=== PATIENT | male | born 1990 | race Caucasian/White ===

== ENCOUNTER 2019-07-30 18:57 | Emergency (ER) | payer SELFPAY ==
[~2019-07-30] VITALS: Ht 170.2 cm; Wt 59.9 kg
[2019-07-30 22:02] VITALS: BP 119/70
[2019-07-30] MEDS ORDERED: LIDOCAINE 1% HCL (LOCAL ANESTH.) INJ 20ML MDV IJ ONE (22:15)
[2019-07-30] MEDS ORDERED: cefTRIAXone SOD 1,000 MG VL IM ONE (22:15)
[2019-07-30] MEDS ORDERED: ACETAMINOPHEN/CODEINE#3 (300/30mg) TAB PO ONE (22:30)
[2019-07-30] MEDS ORDERED: TETANUS-DIPTH-ACEL PERTUSSIS 0.5ML SYRG IM ONE (23:15)
== END 2019-07-30 23:37 | disposition home or self-care (01) ==
LOC: ER 19:01
DX: S61.216A Laceration without foreign body of right little finger without damage to nail, initial encounter (principal); F17.210 Nicotine dependence, cigarettes, uncomplicated; F12.10 Cannabis abuse, uncomplicated; W23.0XXA Caught, crushed, jammed, or pinched between moving objects, initial encounter; Y93.89 Activity, other specified; Y99.8 Other external cause status; Y92.89 Other specified places as the place of occurrence of the external cause
CPT/HCPCS: 12002; 73110; 73130; 90471; 90715; 96372; 99283; J0696; J2001

== ENCOUNTER 2021-10-30 08:50 | Emergency (ER) | payer MEDICAID ==
[~2021-10-30] VITALS: Ht 172.7 cm; Wt 59.0 kg
[2021-10-30] MEDS ORDERED: KETOROLAC TROMETH 30 MG/ML 1ML VIAL IV ONE (09:45)
[2021-10-30] MEDS ORDERED: PROMETHAZINE HCL 25 MG/ML 1ML IV ONE (09:45)
[2021-10-30 09:46] VITALS: BP 127/65
[2021-10-30 09:54] LABS: Basophils # (auto) 0.1 10 ^3/uL (0-0.2); Basophils % (auto) 0.4 % (0.0-2.0); Eosinophils # (auto) 0 10 ^3/uL (0-0.8); Eosinophils % (auto) 0.3 % (0.0-7.0); Hematocrit 43.4 % (41.0-53.0); Hemoglobin 14.7 g/dL (13.5-17.5); Lymphocytes # (auto) 1.8 10 ^3/uL (0.4-5.4); Lymphocytes % (auto) 11.5 % (10.0-50.0); Mean Corpuscular Hemoglobin 32.6 pg (28.0-32.0); Mean Corpuscular Hgb Conc. 33.8 g/dL (32.0-36.0); Mean Corpuscular Volume 96.6 fL (80.0-100.0); Neutrophils % (auto) 81.8 % (37.0-80.0); Red Cell Distribution Width 13.5 % (11.8-14.3); White Blood Cell 15.9 10^3/uL (4.4-10.8)
[2021-10-30] MEDS ORDERED: SODIUM CHLORIDE 0.9% 1,000 ML IV ONE ×2 (10:00)
[2021-10-30 10:08] LABS: Albumin 4.2 g/dL (3.4-5.0); Calcium 8.6 mg/dL (8.5-10.1)
[2021-10-30 10:12] LABS: BUN/Creatinine Ratio 9.3; Bilirubin, Total 0.3 mg/dL (0.2-1.0); Total Protein 7.5 g/dL (6.4-8.2)
== END 2021-10-30 09:57 | disposition left against medical advice (07) ==
LOC: ER 08:50 → EDBD 08:50 → ER 09:57
DX: R55 Syncope and collapse (principal); F17.210 Nicotine dependence, cigarettes, uncomplicated; F12.10 Cannabis abuse, uncomplicated; Z53.29 Procedure and treatment not carried out because of patient's decision for other reasons
CPT/HCPCS: 36415; 80053; 85025

== ENCOUNTER 2025-07-08 12:01 | Emergency (ER) | payer MEDICAID ==
[~2025-07-08] VITALS: Ht 175.3 cm; Wt 68.0 kg
--- NOTE | 2025-07-08 12:14 | ED.PDOC ---
HPI (NEURO) HPI Comments HPI: This is a 34 year old male MEJIAA presenting to the ED with chief complaint of seizure. 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 EMS relays that the patient has no recollection of the seizure or the events leading up to him going to work. Patient states that he last had a seizure 3 years ago and has not been taking any Keppra since then. Patient denies any headache, oral trauma, incontinence, chest pain, or SOB. Initial Vitals BP: 102/55 HR: 71 RR: 15 O2: 95% Temp: 98.9F Past Medical History: Seizures Past Surgical History: Denies Social History: Denies ETOH and smoking, +Marijuana use Medications: Denies Allergies: NKDA HPI: Poor Historian. REVIEW OF SYSTEMS: CONSTITUTIONAL: Denies acute: fever, diaphoresis, chills, HEAD: Denies acute: headache, photophobia Eyes: Denies acute: Double vision, vision loss, eye pain, eye discharge. EARS: Denies acute: tinnitus, hearing loss, ear discharge, ear pain, THROAT: Denies acute: sore throat, swelling, difficulty swallowing , pain with swallowin g, change in voice. NECK: Denies acute: neck pain, neck swelling, stiff neck. HEART: Denies acute : chest pain, palpitations, LUNGS: Denies acute: SOB, wheezing, cough, hemoptysis ABDOMEN: Denies acute: abdominal pain, Nausea, Vomiting, diarrhea, melena , hematemesis, hematochezia SKIN: Denies acute: rash, redness, lesions, itchiness. EXTREMITIES: Denies acute: calf pain, numbness, tingling, weakness, denies pain in extremity. Denies acute: Low back pain. Neuro: Denies acute: focal neurological deficit, motor or sensory focal neurological deficit, tremors, dizziness, change in mental status, loss of bowel or bladder function, cauda equina like symptoms. : Denies acute: dysuria, hematuria, flank pain, increase in urinary frequency. PSYCH: Denies acute: hallucination, suicidal ideation, homicidal ideation. PHYSICAL EXAM: General: ---mild-----acute distress, awake and alert. Head: normocephalic, atraumatic. Neck: supple, trachea is midline, no swelling. Cervical spine: Palpation of the posterior midline of the cervical spine reveals no focal swelling, erythema, focal tenderness to palpation. Patient has normal range of motion. Throat: Normal phonation. No evidence of oral trauma. No erythema exudates or swelling. Eyes:, no erythema, no purulent discharge, no proptosis, no icterus. Heart: regular rate, regular rhythm, no significant murmur appreciated. Lungs: no apparent respiratory distress, Able to speak in full sentences. No wheezing, no rhonchi, no crackles. No stridors Clear to auscultation bilaterally. Abdomen: non tender to palpation, non distended, soft, no guarding, no rebound, + bowel sounds. Neuro: Awake, Alert, oriented to name, self, situation, follows commands GCS=15. Speech is normal. Skin: no petechia, no purpura, no cyanosis, non-pale, not jaundice. Lower extremities: --no - Pitting edema no deformity, no focal swelling, no calf TTP. Makes eye contact. moves all four extremities. Face: no apparent facial droop. PERRLA, EOM-I CN 2-12 are grossly intact, No nystagmus. No nuchal rigidity, Kernig's sign, Brudzinski's sign, no meningeal signs. ED COURSE: DISCLAIMER: This medical document was created using an electronic medical record system with voice recognition software and computerized dictation system. Although this document has been carefully reviewed, there might still be some phonetic and typographical errors. Occasional wrong-word or "sound-alike" substitutions may have occurred due to the inherent limitations of voice recognition software. These areas are purely typographical due to imperfections of the software programs and do not reflect any compromise in the patient's medical care. Please read the chart carefully and recognize, using context, where these substitutions have occurred. Time Seen by MD: 12:11 Primary Care Provider: UNKNOWN Reviewed Notes: Medications, Allergies Information Source: Patient, Emergency Med Personnel Mode of Arrival: EMS EKG EKG : Pulse Rate (adult): 71 Cardiac Rhythm: NSR Was a procedure done? Was a procedure done?: No X-Ray, Labs, Meds, VS Vital Signs Date Time Temp Pulse Resp B/P (MAP) Pulse Ox O2 Delivery O2 Flow Rate FiO2 07/08/25 12:45 66 15 95 Room Air* 0 21 07/08/25 12:45 98.9 66 15 102/55 (71) 95 98.9 07/08/25 12:14 71 07/08/25 12:10 71 07/08/25 12:01 98.1 90 14 120/78 100 98.1 Lab Test 07/08/25 14:23 07/08/25 13:15 Range/Units Troponin I High Sensitivity < 3 L < 3 L </=54 ng/L White Blood Count 10.1 4.4-10.8 10^3/uL Red Blood Count 3.96 L 4.5-5.90 10^6/uL Hemoglobin 13.0 L 13.5-17.5 g/dL Hematocrit 37.7 L 41.0-53.0 % Mean Corpuscular Volume 95.2 80.0-100.0 fL Mean Corpuscular Hemoglobin 32.8 H 28.0-32.0 pg Mean Corpuscular Hemoglobin Concent 34.5 32.0-36.0 g/dL Red Cell Distribution Width 13.7 11.8-14.3 % Platelet Count 236 140-450 10^3/uL Mean Platelet Volume 8.6 6.9-10.8 fL Neutrophils (%) (Auto) 73.5 37.0-80.0 % Lymphocytes (%) (Auto) 18.4 10.0-50.0 % Monocytes (%) (Auto) 7.0 0.0-12.0 % Eosinophils (%) (Auto) 0.5 0.0-7.0 % Basophils (%) (Auto) 0.6 0.0-2.0 % Neutrophils # (Auto) 7.4 1.6-8.6 10 ^3/uL Lymphocytes # (Auto) 1.9 0.4-5.4 10 ^3/uL Monocytes # (Auto) 0.7 0-1.3 10 ^3/uL Eosinophils # (Auto) 0.1 0-0.8 10 ^3/uL Basophils # (Auto) 0.1 0-0.2 10 ^3/uL Nucleated Red Blood Cells 0.0 % Sodium Level 145 136-145 mmol/L Potassium Level 4.1 3.5-5.1 mmol/L Chloride Level 110 H 98-107 mmol/L Carbon Dioxide Level 29 20-31 mmol/L Anion Gap 6 5-15 Blood Urea Nitrogen 15 9-23 mg/dL Creatinine 0.96 0.700-1.30 mg/dL Glomerular Filtration Rate Calc 108 >90 mL/min BUN/Creatinine Ratio 15.6 10.0-20.0 Serum Glucose 81 74-106 mg/dL Lactic Acid Level 1.1 0.4-2.0 mmol/L Calcium Level 9.2 8.7-10.4 mg/dL Magnesium Level 2.2 1.6-2.6 mg/dL Total Bilirubin 0.2 0.2-1.0 mg/dL Aspartate Amino Transferase (AST) 14 13-40 U/L Alanine Aminotransferase (ALT) 11 7-40 U/L Alkaline Phosphatase 54 46-116 U/L Creatine Kinase 172 H 46-171 U/L Total Protein 6.2 5.7-8.2 g/dL Albumin 4.4 3.2-4.8 g/dL Current Medications Medications (Trade) Dose Ordered Sig/Tomy Route Start Time Stop Time Status Last Admin Sodium Chloride 1,000 ml @ 1,000 mls/hr Q1H ONCE IV 07/08/25 12:15 07/08/25 13:14 DC 07/08/25 13:32 Levetiracetam 100 ml @ 400 mls/hr ONCE ONCE IV 07/08/25 12:15 07/08/25 12:29 DC 07/08/25 13:32 Acetaminophen/ Hydrocodone Bitart (Mccoy 5/325MG Tab) 1 tab ONCE ONCE PO 07/08/25 13:45 07/08/25 13:46 DC 07/08/25 13:45 Time of 1ST Reevaluation: 13:10 Reevaluation 1ST: Unchanged Time of 2ND Reevaluation: 15:06 (The case was discussed with the [facility] admitting team to transfer the patient for further evaluation and treatment (HPI, physical exam, labs and diagnostic tests that were available at the time of disposition, ED course, treatment plan) on the phone. They recommended to discharge the patient home on Keppra 500 mg b.i.d.. Authorization #[id number] Dr. Holm. They will arrange for urgent outpatient neuro follow up. Patient is now back to his baseline. Patient states he has Keppra prescription at home but requested that we send him home with a prescription just in case he can not find it. [facility] records per my phone call they said that the patient was never prescribed Keppra on there and but used to be on Tegretol. Patient still insists that he is on Keppra instead.) Patient Education/Counseling: Diagnosis, Treatment Family Education/Counseling: No Family Present Departure 1 Departure Time of Disposition: 15:09 Impression: Primary Impression: Seizure disorder Additional Impression: Noncompliance with medications Disposition: 01 HOME / SELF CARE / HOMELESS Condition: Stable Additional Instructions: Additional instructions: You MUST follow-up with your primary care/family doctor in 1 to 2 days. If you are unable to see your primary care/family doctor, please return to our emergency room for re-assessment and re-evaluation in 1 to 2 days. Return to the emergency room here in our facility or to the nearest ER [facility] if your symptoms change or worsen. CONSULTATIONS: you MUST Follow-up for consultation as soon as possible with: ---neurology in 1-2 days. Please call for appointment. You MUST call the consultants office yourself to make an appointment. You may need to arrange that through your insurance and/or your primary/family doctor. If you are unable to see the informatics consultant in 1 to 2 days, you must return to our emergency room (or any other ER of your choice) for re-assessment and re- evaluation. Adequate fluid hydration. Please compliant with the medications. Do not operate any machinery since she has a seizure disorder asked in the mid nurse. Absolutely No driving. Below is a copy of your radiological report for follow up: e-Prescriptions Levetiracetam (KEPPRA TABLET) 500 Mg Tb 500 MG PO BID for 30 Days, #60 TAB Prov: KAITLYNN BATISTA DO 07/08/25 Discharged With: Self Critical Care Note Critical Care Time?: No I personally scribed for KAITLYNN BATISTA DO ([email or web address]) on 07/08/25 at 12:14. Electronically submitted by Tommy Logan ([email or web address]). I personally scribed for KAITLYNN BATISTA DO ([email or web address]) on 07/08/25 at 14:15. Electronically submitted by Tommy Logan ([email or web address]). KAITLYNN BATISTA DO Jul 08, 2025 12:14
[2025-07-08 12:45] VITALS: PULSE 66; RESP 15; TEMP 98.9; O2SAT 95
--- NOTE | 2025-07-08 13:11 | DVH ---
CHEST RADIOGRAPH Indication: SEIZURE Technique: Single frontal view of the chest was obtained COMPARISON: None FINDINGS: Lines and Tubes: None Lungs: Clear Pleura: No effusion. No pneumothorax. Cardiomediastinal contours: Unremarkable Bones: Unremarkable IMPRESSION: No acute disease.
--- NOTE | 2025-07-08 13:27 | DVH ---
EXAM: CT HEAD WITHOUT CONTRAST INDICATION: SEIZURE TECHNIQUE: CT of the head without intravenous contrast. Radiation Dose Information: CT Dose: CTDI volume is 53.99 mGy. Dose-length product is 863.9 mGy*cm The dose indicators for CT are the volume Computed Tomography (CT) Dose Index (CTDIvol) and the Dose Length Product (DLP), and are measured in units of mGy and mGy-cm, respectively. These indicators are not patient dose, but values generated from the CT scanner acquisition factors. The report includes radiation exposure data for exposures received during this examination. COMPARISON: None FINDINGS: There is no evidence of acute intracranial hemorrhage, extra-axial collection, mass effect, midline s hift, herniation or hydrocephalus. The ventricles, sulci and cisterns are age appropriate. The watson-white differentiation is intact. Patchy periventricular and subcortical white matter hypoattenuation is nonspecific but may be related to small vessel ischemic disease. The visualized paranasal sinuses and mastoid air cells are clear. The surrounding soft tissues and osseous structures are unremarkable. IMPRESSION: No acute intracranial abnormality.
[2025-07-08 13:30] LABS: Hematocrit 37.7 % (41.0-53.0); Hemoglobin 13.0 g/dL (13.5-17.5); Mean Corpuscular Hemoglobin 32.8 pg (28.0-32.0); Mean Corpuscular Volume 95.2 fL (80.0-100.0); Nucleated Red Blood Cells % 0.0 %
[2025-07-08] MEDS: SODIUM CHLORIDE 0.9% 1,000 ML IV ONE (13:32)
[2025-07-08] MEDS: levETIRAcetam 1000 mg/100ml 100 ML IV ONE (13:32)
[2025-07-08 13:41] LABS: Alanine Aminotransferase 11 U/L (7-40); Albumin 4.4 g/dL (3.2-4.8); Alkaline Phosphatase 54 U/L (46-116); Anion Gap 6 (5-15); BUN/Creatinine Ratio 15.6 (10.0-20.0); Blood Urea Nitrogen 15 mg/dL (9-23); Calcium 9.2 mg/dL (8.7-10.4); Carbon Dioxide 29 mmol/L (20-31); Glucose 81 mg/dL (74-106); Magnesium 2.2 mg/dL (1.6-2.6); Potassium 4.1 mmol/L (3.5-5.1); Sodium 145 mmol/L (136-145); Total Protein 6.2 g/dL (5.7-8.2)
[2025-07-08 13:45] LABS: Bilirubin, Total 0.2 mg/dL (0.2-1.0); Chloride 110 mmol/L (98-107); Creatine Kinase IFCC 172 U/L (46-171)
[2025-07-08] MEDS: HYDROcodone-ACET 5/325MG TAB PO ONE (13:45)
[2025-07-08] MEDS ORDERED: KEP500T PO (15:09)
[2025-07-08 15:25] VITALS: BP 104/71; PULSE 48; RESP 15; O2SAT 96
[2025-07-08 15:26] LABS: Urine Protein, UAD Negative (Negative)
== END 2025-07-08 15:29 | disposition home or self-care (01) ==
LOC: EDBD 12:01 → ER 12:01 → EDUNIT# 12:01 → ER 15:29
DX: G40.909 Epilepsy, unspecified, not intractable, without status epilepticus (principal); Z91.148 Patient's other noncompliance with medication regimen for other reason
CPT/HCPCS: 36415; 70450; 71045; 80053; 81001; 82550; 83605; 83735; 84484; 85025; 96365; 96366; 99285; J1953; J7030

== ENCOUNTER 2025-11-01 07:18 | Emergency (ER) | payer MEDICAID ==
[~2025-11-01] VITALS: Ht 172.7 cm; Wt 68.0 kg
[~2025-11-01 07:18] MED LIST: KEP500T PO
--- NOTE | 2025-11-01 07:34 | ED.PDOC ---
HPI (NEURO) HPI Comments 35 year old male with PMHx seizure presents to the ED via EMS with a chief complaint of seizure onset today. Per EMS, patient experienced multiple tonic clonic seizures, began around 06:00. In route to ED, patient experienced another seizure, was given Versed 10 mg IM in route. Patient was out of seizure medication for the past 4 days. Upon ED arrival, patient is postictal. No other symptoms or modifying factors present at this time. Chief Complaint: Seizure Time Seen by MD: 07:35 Primary Care Provider: UNKNOWN Reviewed Notes: Medications, Allergies Information Source: Patient, Emergency Med Personnel Mode of Arrival: EMS Severity: Moderate Timing: Hours Duration: Since onset Prehospital treatment: Other (versed 10 mg IM) Seizure Quality: Tonic-clonic Seizure Location: Generalized Onset: At rest Circumstances: Spontaneous Before: Normal History of: Seizure Disorder Modifying factors: Nothing Past Medical History PAST MEDICAL HISTORY: Seizures Surgical History: Denies all surgeries Family History Family History: Reviewed,noncontributory to illness Social History Smoker: Cigarettes, Less Than 1 Pack/Day Alcohol: Denies ETOH Use Drugs: Marijuana Lives In: Home Constitutional: denies: chills, diaphoresis, fatigue, fever, malaise, sweats, weakness, others EENTM: denies: blurred vision, double vision, ear bleeding, ear discharge, ear drainage, ear pain, ear ringing, eye pain, eye redness, hearing loss, mouth pain, mouth swelling, nasal discharge, nose bleeding, nose congestion, nose jessica n, photophobia, tearing, throat pain, throat swelling, voice changes, others Respiratory: denies: cough, hemoptysis, orthopnea, SOB at rest, shortness of breath, SOB with excertion, stridor, wheezing, others Cardiovascular: denies: chest pain, dizzy spells, diaphoresis, Dyspnea on exertion, edema, irregular heart beat, left arm pain, lightheadedness, palpitations, PND, syncope, others Gastrointestinal: denies: abdomen distended, abdominal pain, blood streaked bowels, constipated, diarrhea, dysphagia, difficulty swallowing, hematemesis, melena, nausea, poor appetite, poor fluid intake, rectal bleeding, rectal pain, vomiting, others Genitourinary: denies: burning, dysuria, flank pain, frequency, hematuria, incontinence, penile discharge, penile sore, pain, testicle pain, testicle swelling, urgency, others Neurological: reports: seizure; denies: dizziness, fainting, headache, left si ded numbness, left sided weakness, numbness, paresthesia, pre-existing deficit, right sided numbness, right sided weakness, speech problems, tingling, tremors, weakness, others Musculoskeletal: denies: back pain, gout, joint pain, joint swelling, muscle pain, muscle stiffness, neck pain, others Integumetry: denies: bruises, change in color, change in hair/nails, dryness, laceration, lesions, lumps, rash, wounds, others Allergic/Immunocompromised: denies: Difficulty Healing, Frequent Infections, Hives, Itching, others Hematologic/Lymphatic: denies: anemia, blood clots, easy bleeding, easy bruising, swollen glands, others Endocrine: denies: excessive hunger, excessive sweating, excessive thirst, excessive urination, flushing, intolerance to cold, intolerance to heat, unexplained weight gain, unexplained weight loss, others Psychiatric: denies: anxiety, bipolar disorder, depression, hopeless, panic disorder, schizophrenia, sleepless, suicidal, others All Other Systems: Reviewed and Negative Physical Exam General Appearance: Normal, Other (Postictal) HEENT: Normal ENT Inspection, Pharynx Normal, TMs Normal Neck: Full Range of Motion, Non-Tender, Normal, Normal Inspection Respiratory: Chest Non-Tender, Lungs Clear, No Accessory Muscle Use, No Respiratory Distress, Normal Breath Sounds Cardiovascular: No Edema, No JVD, No Murmur, No Gallop, Normal Peripheral Pulses, Regular Rate/Rhythm Breast Exam: Deferred Gastrointestinal: No Organomegaly, Non Tender, No Pulsatile Mass, Normal Bowel Sounds, Soft Genitalia: Deferred Pelvic: Deferred Rectal: Deferred Extremities: No calf tenderness, Normal capillary refill, Normal inspection, Normal range of motion, Non-tender, No pedal edema Musculoskeletal : Apperance: Normal Neurologic: Other (Postictal) Cerebellar Function: Normal Reflexes: Normal Skin: Dry, Normal Color, Warm Lymphatic: No Adenopathy Was a procedure done? Was a procedure done?: No Differential Diagnosis (SZ) Seizure: Epilepsy-Break Through X-Ray, Labs, Meds, VS Vital Signs Date Time Temp Pulse Resp B/P (MAP) Pulse Ox O2 Delivery O2 Flow Rate FiO2 11/01/25 07:40 76 19 92 Room Air* 0 21 11/01/25 07:40 98.2 76 19 115/54 (74) 92 98.2 11/01/25 07:23 98.0 79 30 131/67 99 98.0 Current Medications Medications (Trade) Dose Ordered Sig/Tmoy Route Start Time Stop Time Status Last Admin Valproate Sodium 1000 mg/Sodium Chloride 110 ml @ 110 mls/hr ONCE ONCE IV 11/01/25 08:15 11/01/25 09:14 DC 11/01/25 09:00 Time of 1ST Reevaluation: 08:05 Reevaluation 1ST: Unchanged Patient Education/Counseling: Diagnosis, Treatment, Prognosis Family Education/Counseling: No Family Present Departure 1 Departure Time of Disposition: 09:30 (Patient had a breakthrough seizure. We will discharge patient home with outpatient follow up) Impression: Primary Impression: Breakthrough seizure Disposition: 01 HOME / SELF CARE / HOMELESS Condition: Stable Additional Instructions: You had a breakthrough seizure today. It is important to take your seizure medication. You should stay well rested and well hydrated. You should follow up with your regular doctor within 1 week. If your symptoms worsen or you have any other concerns then please return to the emergency room. Discharged With: Self Critical Care Note Critical Care Time?: No Stability Stability form required: No Heart Score Heart Score: Heart Score Response (Comments) Value History N/A 0 EKG N/A 0 Age N/A 0 Risk Factors N/A 0 Troponin N/A 0 Total 0 I personally scribed for GERMÁN SONI MD ([email or web address]) on 11/01/25 at 07:34. Electronically submitted by Angela Montenegro ([email or web address]). I personally scribed for GERMÁN SONI MD ([email or web address]) on 11/01/25 at 07:37. Electronically submitted by Angela Montenegro ([email or web address]). GERMÁN SONI MD Nov 01, 2025 07:34
[2025-11-01 07:40] VITALS: BP 115/54; PULSE 76; RESP 19; TEMP 98.2; O2SAT 92
[2025-11-01] MEDS ORDERED: levETIRAcetam 1000 mg/100ml 100 ML IV ONE (07:45)
[2025-11-01] MEDS: VALPROATE INJ 1,000 MG in SODIUM CHL 0.9% 100 ML IV ONE (09:00)
[2025-11-01 09:44] VITALS: PULSE 76
== END 2025-11-01 10:12 | disposition home or self-care (01) ==
LOC: ER 07:18 → EDBD 07:18 → ER 09:58
DX: G40.909 Epilepsy, unspecified, not intractable, without status epilepticus (principal); F17.210 Nicotine dependence, cigarettes, uncomplicated
CPT/HCPCS: 96365

== ENCOUNTER 2025-11-24 19:28 | Emergency (ER) | payer MEDICAID ==
[~2025-11-24] VITALS: Ht 172.7 cm; Wt 54.4 kg
[2025-11-24 19:45] VITALS: BP 97/50; TEMP 98
--- NOTE | 2025-11-24 19:53 | ED.PDOC ---
HPI (NEURO) HPI Comments 35-year-old male with a history of seizure disorder allergic to Keppra and takes type Trileptal and states that he has been compliant with his medication now presents by EMS after having a seizure at home. Patient is briefly amnestic to events. Patient denies any trauma or injury or pain complaints at this time. Chief Complaint: Seizure Time Seen by MD: 19:32 Primary Care Provider: UNKNOWN Reviewed Notes: Nurses Notes, Drug Safety Scientist Notes Information Source: Patient, Emergency Med Personnel Mode of Arrival: EMS Severity: Severe Headache Severity: Mild Timing: Minutes Duration: Intermittent Seizure Quality: Tonic-clonic Past Medical History PAST MEDICAL HISTORY: Seizures Surgical History: Denies all surgeries Family History Family History: Reviewed,noncontributory to illness Social History Smoker: Cigarettes, Less Than 1 Pack/Day Alcohol: Denies ETOH Use Drugs: Marijuana Lives In: Home Constitutional: reports: fatigue Neurological: reports: headache, seizure All Other Systems: Reviewed and Negative Physical Exam General Appearance: Mild Distress HEENT: Normal ENT Inspection, Pharynx Normal, TMs Normal, Other (No oral trauma noted) Neck: Full Range of Motion, Non-Tender, Normal, Normal Inspection Respiratory: Chest Non-Tender, Lungs Clear, No Accessory Muscle Use, No Respiratory Distress, Normal Breath Sounds Cardiovascular: No Edema, No JVD, No Murmur, No Gallop, Normal Peripheral Pulses, Regular Rate/Rhythm Breast Exam: Deferred Gastrointestinal: No Organomegaly, Non Tender, No Pulsatile Mass, Normal Bowel Sounds, Soft Genitalia: Deferred Pelvic: Deferred Rectal: Deferred Extremities: No calf tenderness, Normal capillary refill, Normal inspection, Normal range of motion, Non-tender, No pedal edema Musculoskeletal : Apperance: Normal Neurologic: Alert, director cardiovascular II-XII nml as Tested, No Motor Deficits, Normal Affect, Normal Mood, No Sensory Deficits Cerebellar Function: Normal Reflexes: Normal Skin: Dry, Normal Color, Warm Lymphatic: No Adenopathy Was a procedure done? Was a procedure done?: No Differential Diagnosis (SZ) Seizure: Psychogenic Seizure, Alcohol Withdrawl, Closed Head Injury, CVA/TIA, Drug Ingestion, Hypocalcemia, Hypoglycemia, Hyponatremia, Hypoxemia, Idiopathic, Mass Lesion, Syncope, Encephalopathy, Epilepsy-Break Through, Epilepsy-Status, Other X-Ray, Labs, Meds, VS Vital Signs Date Time Temp Pulse Resp B/P (MAP) Pulse Ox O2 Delivery O2 Flow Rate FiO2 11/24/25 20:00 74 16 94 Room Air* 0 21 11/24/25 19:45 98.0 74 16 97/50 (66) 94 98.0 11/24/25 19:38 98.9 88 15 129/81 100 98.9 Lab Test 11/24/25 19:50 Range/Units White Blood Count 7.9 4.4-10.8 10^3/uL Red Blood Count 4.23 L 4.5-5.90 10^6/uL Hemoglobin 13.1 L 13.5-17.5 g/dL Hematocrit 38.7 L 41.0-53.0 % Mean Corpuscular Volume 91.4 80.0-100.0 fL Mean Corpuscular Hemoglobin 30.9 28.0-32.0 pg Mean Corpuscular Hemoglobin Concent 33.8 32.0-36.0 g/dL Red Cell Distribution Width 13.1 11.8-14.3 % Platelet Count 247 140-450 10^3/uL Mean Platelet Volume 7.9 6.9-10.8 fL Neutrophils (%) (Auto) 59.1 37.0-80.0 % Lymphocytes (%) (Auto) 26.5 10.0-50.0 % Monocytes (%) (Auto) 7.9 0.0-12.0 % Eosinophils (%) (Auto) 5.1 0.0-7.0 % Basophils (%) (Auto) 1.4 0.0-2.0 % Neutrophils # (Auto) 4.7 1.6-8.6 10 ^3/uL Lymphocytes # (Auto) 2.1 0.4-5.4 10 ^3/uL Monocytes # (Auto) 0.6 0-1.3 10 ^3/uL Eosinophils # (Auto) 0.4 0-0.8 10 ^3/uL Basophils # (Auto) 0.1 0-0.2 10 ^3/uL Nucleated Red Blood Cells 0.0 % Sodium Level 140 136-145 mmol/L Potassium Level 3.9 3.5-5.1 mmol/L Chloride Level 106 98-107 mmol/L Carbon Dioxide Level 23 20-31 mmol/L Anion Gap 11 5-15 Blood Urea Nitrogen < 5 L 9-23 mg/dL Creatinine 0.96 0.700-1.30 mg/dL Glomerular Filtration Rate Calc 107 >90 mL/min BUN/Creatinine Ratio 5.2 L 10.0-20.0 Serum Glucose 91 74-106 mg/dL Calcium Level 9.4 8.7-10.4 mg/dL Magnesium Level 2.1 1.6-2.6 mg/dL Total Bilirubin 0.2 0.2-1.0 mg/dL Aspartate Amino Transferase (AST) 14 13-40 U/L Alanine Aminotransferase (ALT) 9 7-40 U/L Alkaline Phosphatase 64 46-116 U/L Total Protein 6.7 5.7-8.2 g/dL Albumin 4.5 3.2-4.8 g/dL Plasma/Serum Blood Alcohol < 3.0 <10 mg/dL Current Medications Medications (Trade) Dose Ordered Sig/Tomy Route Start Time Stop Time Status Last Admin Lorazepam (Ativan Inj) 1 mg ONCE ONCE IV 11/24/25 19:45 11/24/25 19:46 DC 11/24/25 20:09 Time of 1ST Reevaluation: 19:53 Reevaluation 1ST: Unchanged Patient Education/Counseling: Diagnosis, Treatment Family Education/Counseling: No Family Present Departure 1 Departure Time of Disposition: 21:00 Impression: Primary Impression: Seizure disorder Additional Impression: Breakthrough seizure Disposition: 01 HOME / SELF CARE / HOMELESS Condition: Stable Discharged With: Self Critical Care Note Critical Care Time?: No Stability Stability form required: No Heart Score Heart Score: Heart Score Response (Comments) Value History N/A 0 EKG N/A 0 Age N/A 0 Risk Factors N/A 0 Troponin N/A 0 Total 0 PHAM KRISHNAMURTHY MD Nov 24, 2025 19:53
[2025-11-24 20:00] VITALS: PULSE 74; RESP 16; O2SAT 94
[2025-11-24 20:01] LABS: Hematocrit 38.7 % (41.0-53.0); Hemoglobin 13.1 g/dL (13.5-17.5); Mean Corpuscular Hemoglobin 30.9 pg (28.0-32.0); Mean Corpuscular Volume 91.4 fL (80.0-100.0); Nucleated Red Blood Cells % 0.0 %
[2025-11-24] MEDS: LORazepam 2MG/ML-1ML VIAL IV ONE (20:09)
[2025-11-24 20:13] LABS: Albumin 4.5 g/dL (3.2-4.8); Alkaline Phosphatase 64 U/L (46-116); Anion Gap 11 (5-15); Calcium 9.4 mg/dL (8.7-10.4); Carbon Dioxide 23 mmol/L (20-31); Chloride 106 mmol/L (98-107); Glucose 91 mg/dL (74-106); Magnesium 2.1 mg/dL (1.6-2.6); Potassium 3.9 mmol/L (3.5-5.1); Sodium 140 mmol/L (136-145); Total Protein 6.7 g/dL (5.7-8.2)
[2025-11-24 21:01] LABS: Alanine Aminotransferase 9 U/L (7-40); BUN/Creatinine Ratio 5.2 (10.0-20.0); Bilirubin, Total 0.2 mg/dL (0.2-1.0); Blood Urea Nitrogen < 5 mg/dL (9-23)
== END 2025-11-24 21:40 | disposition left against medical advice (07) ==
LOC: ER 19:28 → EDBD 19:28 → ER 21:40
DX: G40.909 Epilepsy, unspecified, not intractable, without status epilepticus (principal); F17.210 Nicotine dependence, cigarettes, uncomplicated; Z88.8 Allergy status to other drugs, medicaments and biological substances; Z79.899 Other long term (current) drug therapy
CPT/HCPCS: 36415; 80053; 80320; 83735; 85025; 96374; 99283; J2060